=== PATIENT | female | born 1955 | race Caucasian/White ===

== ENCOUNTER 2024-09-14 19:04 | Emergency (ER) | payer OTHER ==
[~2024-09-14] VITALS: Ht 162.6 cm; Wt 72.5 kg
[2024-09-14] MEDS: tetanus & diphtheria toxoid (Td) vaccine 0.5ml IMVAC ONE (20:00)
[2024-09-14 22:27] VITALS: BP 158/83; PULSE 66; TEMP 97.9; O2SAT 99
[2024-09-15 00:39] VITALS: RESP 16
[2024-09-15] MEDS: LIDOcaine 1% W/epiNEPHrine 1:100,000 20ml vial SQ ONE (01:13)
== END 2024-09-15 01:23 | disposition home or self-care (01) ==
LOC: ER 19:05
DX: S01.81XA Laceration without foreign body of other part of head, initial encounter (principal); W19.XXXA Unspecified fall, initial encounter; Y93.89 Activity, other specified; Y92.89 Other specified places as the place of occurrence of the external cause; Y99.8 Other external cause status
CPT/HCPCS: 12011; 70450; 72125; 90471; 90715; 99285